=== PATIENT | male | born 1975 | race Caucasian/White ===

== ENCOUNTER 2020-08-30 21:44 | Emergency (ER) | payer OTHER ==
[~2020-08-30 21:44] MED LIST: PROTONIX40 M1 PO; ZOFRAN4 MG PO
[2020-08-30 22:33] LABS: HEMOGLOBIN 14.1 gm/dl (14.0-17.5); RED BLOOD COUNT 4.75 M/UL (4.20-5.50); WHITE BLOOD COUNT 9.3 K/UL (4.5-11.0)
[2020-08-30 22:50] LABS: BUN/CREATININE RATIO 26 (0-10)
== END 2020-08-31 03:27 | disposition home or self-care (01) ==
LOC: ER1 21:44
PROVIDERS: Physician Assistant
DX: I31.3 Pericardial effusion (noninflammatory) (principal); Z86.59 Personal history of other mental and behavioral disorders
CPT/HCPCS: 71045; 80053; 82550; 82553; 83874; 83880; 84484; 85025; 85379; 85610; 85730; 93005; 99285; Q9967

== ENCOUNTER 2021-06-09 07:01 | Emergency (ER) | payer SELFPAY | END 2021-06-09 08:40 | disposition E | LOC: ER1 07:01 | DX: T40.2X1A Poisoning by other opioids, accidental (unintentional), initial encounter (principal); I46.9 Cardiac arrest, cause unspecified | CPT/HCPCS: 92950; 99285 ==